=== PATIENT | male | born 1975 ===

== ENCOUNTER 2017-07-11 11:18 | Emergency (ER) | payer OTHER ==
[~2017-07-11] VITALS: Ht 165.1 cm; Wt 86.2 kg
[2017-07-11] MEDS ORDERED: KETO10TA2 PO ×2 (13:55→15:04)
[2017-07-11] MEDS ORDERED: NORFLEX100MG PO (15:04)
== END 2017-07-11 15:22 | disposition home or self-care (01) ==
LOC: ER 11:18
DX: S73.191A Other sprain of right hip, initial encounter (principal); S33.5XXA Sprain of ligaments of lumbar spine, initial encounter; X50.1XXA Overexertion from prolonged static or awkward postures, initial encounter; Y93.89 Activity, other specified; Y92.89 Other specified places as the place of occurrence of the external cause; Y99.8 Other external cause status

== ENCOUNTER 2017-09-09 17:01 | Emergency (ER) | payer OTHER ==
[~2017-09-09] VITALS: Ht 165.1 cm; Wt 88.5 kg
[~2017-09-09 17:01] MED LIST: KETO10TA2 PO; NORFLEX100MG PO
== END 2017-09-09 21:28 | disposition home or self-care (01) ==
LOC: ER 17:01
DX: S67.190A Crushing injury of right index finger, initial encounter (principal); X58.XXXA Exposure to other specified factors, initial encounter; Y93.89 Activity, other specified; Y92.89 Other specified places as the place of occurrence of the external cause; Y99.8 Other external cause status